=== PATIENT | male | born 1985 | race Caucasian/White ===

== ENCOUNTER → 2020-12-23 | Emergency (ER) | payer OTHER ==
[~2020-12-23] VITALS: Ht 175.3 cm; Wt 71.3 kg
[~2020-12-23] MED LIST: PRED20TA PO
[2020-12-23 13:55] VITALS: BP 138/72
== END ==
LOC: ER 13:46
DX: L50.9 Urticaria, unspecified (principal)
CPT/HCPCS: 99283